=== PATIENT | male | born 1965 | race Caucasian/White ===

== ENCOUNTER 2020-02-28 03:20 | Emergency (ER) | payer MEDICAID ==
[~2020-02-28] VITALS: Ht 180.3 cm; Wt 104.5 kg
[2020-02-28] MEDS ORDERED: ASPI-728 PO (04:28)
[2020-02-28] MEDS ORDERED: LINE600T14 PO (04:28)
[2020-02-28] MEDS ORDERED: GABA-1181 PO (04:28)
[2020-02-28] MEDS ORDERED: BUSP10TA23 PO (04:28)
[2020-02-28] MEDS ORDERED: BUME1TAB34 PO (04:28)
[2020-02-28] MEDS ORDERED: CARV6 PO (04:28)
[2020-02-28] MEDS ORDERED: SPIR25 PO (04:28)
[2020-02-28] MEDS ORDERED: ATOR20TA86 PO (04:28)
[2020-02-28] MEDS ORDERED: BACI28.42 TP (04:28)
[2020-02-28] MEDS ORDERED: BUTE12CR TP (04:28)
[2020-02-28] MEDS ORDERED: LOSA25TA21 PO (04:28)
[2020-02-28] MEDS ORDERED: INSU100C14 SQ (04:28)
[2020-02-28] MEDS ORDERED: INSLAN SQ (04:28)
[2020-02-28] MEDS ORDERED: FLUC200T PO (04:28)
[2020-02-28 05:02] LABS: CALCIUM, TOTAL 10.4 mg/dL (8.8-10.5); CREATININE 2.26 mg/dL (0.60-1.30); POTASSIUM 5.5 mmol/L (3.5-5.1)
[2020-02-28 05:05] LABS: HEMATOCRIT 32.7 % (41-53); HEMOGLOBIN 9.9 g/dL (13.5-17.5); MEAN CORPUSCULAR HEMOGLOBIN 22.6 pg (26.0-34.0); MEAN CORPUSCULAR HGB CONC 30.3 G/dL (31.0-37.0); MEAN CORPUSCULAR VOLUME 75 fL (80-100); PLATELET COUNT (AUTO) 253 K/uL (150-450); RED BLOOD CELL COUNT(AUTO) 4.38 MIL/uL (4.50-5.90); RED CELL DISTRIBUTION WIDTH 24.3 % (11.5-14.5)
[2020-02-28 05:08] LABS: ALBUMIN 3.7 g/dL (3.4-5.0); BILIRUBIN,TOTAL 2.7 mg/dL (0.1-1.0)
[2020-02-28 05:30] LABS: BAND NEUTROPHILS % (MANUAL) 7 % (0-5); LYMPHOCYTES % (MANUAL) 8 % (22-44); MONOCYTES % (MANUAL) 9 % (2-9); SEGMENTED NEUTROPHILS % 76 % (40-70)
[2020-02-28] MEDS ORDERED: SODIUM CHLORIDE 0.9% 1,000 ML IV ONE ×2 (05:30→07:15)
[2020-02-28] MEDS ORDERED: ONDANSETRON HCL 4 MG/2 ML VIAL IVP ONE (05:30)
[2020-02-28 06:15] LABS: APPEARANCE,URINE CLEAR (CLEAR); BILIRUBIN,URINE NEGATIVE (NEGATIVE); GLUCOSE, URINE (UA) NEGATIVE (NEGATIVE); KETONES,URINE NEGATIVE (NEGATIVE); LEUKOCYTE ESTERASE ,URINE NEGATIVE (NEGATIVE); NITRATE,URINE NEGATIVE (NEGATIVE); OCCULT BLOOD,URINE MODERATE (NEGATIVE); PROTEIN,URINE POS 1+ (NEGATIVE); UROBILINOGEN,URINE 0.2 mg/dL (<=1.0)
[2020-02-28 06:17] LABS: BACTERIA,URINE Few /HPF (None Seen); SQUAMOUS EPITHELIAL CELL,UR Few /LPF (None Seen); WBC,URINE 0-2 /HPF (0-5)
[2020-02-28] MEDS ORDERED: ACETAMINOPHEN 500 MG TABLET PO ONE (07:15)
[2020-02-28] MEDS ORDERED: FAMOTIDINE 40 MG in SODIUM CHLORIDE 0.9% 100 ML IV ONE (07:15)
[2020-02-28] MEDS ORDERED: METOCLOPRAMIDE HCL 5 MG/ML 2 ML VIAL IVP ONE (07:15)
[2020-02-28 07:53] LABS: COVID AG,FIA SOURCE NASOPHARYNGEAL
[2020-02-28 08:10] LABS: GLUCOSE,POINT OF CARE 107 MG/DL (70-110)
[2020-02-28 09:30] VITALS: BP 130/69
== END 2020-02-28 10:07 | disposition home or self-care (01) ==
LOC: EMS 03:20
DX: K21.9 Gastro-esophageal reflux disease without esophagitis (principal); R11.2 Nausea with vomiting, unspecified; R60.0 Localized edema; I11.0 Hypertensive heart disease with heart failure; I50.9 Heart failure, unspecified; E11.9 Type 2 diabetes mellitus without complications; F17.210 Nicotine dependence, cigarettes, uncomplicated; Z20.828 Contact with and (suspected) exposure to other viral communicable diseases; Z79.4 Long term (current) use of insulin; Z88.1 Allergy status to other antibiotic agents
CPT/HCPCS: 36415; 71045; 80053; 81001; 82962; 83690; 85025; 87426; 96361; 96365; 96375; 99285; J2405; J2765; J3490; J7030; J7050

== ENCOUNTER 2020-03-21 08:31 | Emergency (ER) | payer BC, MEDICAID ==
[~2020-03-21] VITALS: Ht 180.3 cm; Wt 86.4 kg
[~2020-03-21 08:31] MED LIST: ASPI-728 PO; ATOR20TA86 PO; BACI28.42 TP; BUME1TAB34 PO; BUSP10TA23 PO; BUTE12CR TP; CARV6 PO; FLUC200T PO; GABA-1181 PO; INSLAN SQ; INSU100C14 SQ; LINE600T14 PO; LOSA25TA21 PO; SPIR25 PO
[2020-03-21] MEDS ORDERED: HYDROCODONE/ACETAMINOPHEN 5-325 MG TABLET PO ONE (09:30)
[2020-03-21] MEDS ORDERED: TAMSULOSIN HCL 0.4 MG CAPSULE PO ONE (09:30)
[2020-03-21 10:10] LABS: APPEARANCE,URINE CLOUDY (CLEAR); BILIRUBIN,URINE NEGATIVE (NEGATIVE); GLUCOSE, URINE (UA) 250 mg/dL (NEGATIVE); KETONES,URINE NEGATIVE (NEGATIVE); LEUKOCYTE ESTERASE ,URINE MODERATE (NEGATIVE); NITRATE,URINE NEGATIVE (NEGATIVE); OCCULT BLOOD,URINE LARGE (NEGATIVE); PH,URINE 5.5 (5.0-8.0); PROTEIN,URINE SEE CONFIRM (NEGATIVE); UROBILINOGEN,URINE 0.2 mg/dL (<=1.0)
[2020-03-21 10:18] LABS: SULFOSALICYLIC ACID,URINE 3+ (Negative)
[2020-03-21 10:20] LABS: BACTERIA,URINE Few /HPF (None Seen); RBC,URINE >100 /HPF (0-2); SQUAMOUS EPITHELIAL CELL,UR Few /LPF (None Seen)
[2020-03-21 11:57] VITALS: BP 123/88
== END 2020-03-21 12:15 | disposition home or self-care (01) ==
LOC: EMS 08:33
DX: T83.091A Other mechanical complication of indwelling urethral catheter, initial encounter (principal); I11.0 Hypertensive heart disease with heart failure; I50.9 Heart failure, unspecified; E11.9 Type 2 diabetes mellitus without complications; F17.210 Nicotine dependence, cigarettes, uncomplicated; Z85.9 Personal history of malignant neoplasm, unspecified; Z79.899 Other long term (current) drug therapy; Z79.82 Long term (current) use of aspirin; Z79.4 Long term (current) use of insulin; Z88.1 Allergy status to other antibiotic agents; X58.XXXA Exposure to other specified factors, initial encounter
CPT/HCPCS: 51702; 87086; 81001-TC; 81002-TC; Z7502; Z7610

== ENCOUNTER 2020-03-27 17:16 | Emergency (ER) | payer MEDICAID ==
[~2020-03-27] VITALS: Ht 180.3 cm; Wt 85.5 kg
[2020-03-27 17:44] VITALS: BP 115/72
[2020-03-27 18:01] LABS: GLUCOSE,POINT OF CARE 310 MG/DL (70-110)
== END 2020-03-27 20:30 | disposition left against medical advice (07) ==
LOC: EMS 17:16
DX: M79.10 Myalgia, unspecified site (principal); Z53.21 Procedure and treatment not carried out due to patient leaving prior to being seen by health care provider